=== PATIENT | female | born 1950 | race Caucasian/White ===

== ENCOUNTER 2021-01-26 08:05 | Outpatient (RCR) | payer MEDICARE, SELFPAY ==
[2021-01-26 09:58] VITALS: BP 151/57; PULSE 65; RESP 20; TEMP 35.8; O2SAT 100
[2021-01-26] MEDS: ACETAMINOPHEN 325 MG TABLET 650 MG PO (10:16)
[2021-01-26] MEDS: FAMOTIDINE 20 MG TABLET PO (10:17)
[2021-01-26] MEDS: diphenhydrAMINE HCl CAP 25 MG CAPSULE PO (10:17)
[2021-01-26 11:33] VITALS: BP 139/59
--- NOTE | 2021-01-27 09:13 | PC.NURSE ---
Called Ms So and she is not feeling much better but no worse than before, she is tired she said. She is resting and will call PCP if not better tomorrow. She has no other questions at this time.
== END 2021-01-26 17:00 ==
LOC: AMCINF 08:05
PROVIDERS: PCP Nurse Practitioner Family; Visit Provider Internal Medicine Hematology & Oncology
DX: U07.1 COVID-19 (principal); I10 Essential (primary) hypertension; E11.9 Type 2 diabetes mellitus without complications
CPT/HCPCS: A9270; M0243; Q0244